=== PATIENT | female | born 1990 | race Caucasian/White ===

== ENCOUNTER 2017-01-01 12:33 | Emergency (ER) | payer BC ==
[2017-01-01 12:39] VITALS: TEMP 98.6
[2017-01-01] MEDS ORDERED: LORazepam 1 MG TAB PO ONE (12:56)
--- NOTE | 2017-01-01 13:00 | EDPHY ---
H & P Stated Complaint: TURNED HEAD THIS AM HEARD A POP/ L LATERAL NECK SPASMS Time Seen by Provider: 01/01/17 12:51 HPI/ROS: CHIEF COMPLAINT: Left neck pain HISTORY OF PRESENT ILLNESS: The patient is a 26-year-old female who comes to the emergency department complaining of left-sided neck pain over her trapezius muscle. She states that she was stretching this morning with her arms above her head when she turns her head to the right foot and felt a sudden pop in her left neck and has had pain ever since. She has significant pain with movement of her neck. She has not had any numbness weakness or paralysis. She initially states that she felt some numbness in her left arm but that resolved after second or 2. She has normal strength. She has no history of neck or back problems. She took Tylenol with only moderate improvement. This began around 8 :00 a.m.. REVIEW OF SYSTEMS: Constitutional: denies: chills, fever, recent illness, recent injury EENTM: denies: blurred vision, double vision, nose congestion Respiratory: denies: cough, shortness of breath Cardiac: denies: chest pain, irregular heart rate, lightheadedness, palpitations Gastrointestinal/Abdominal: denies: abdominal pain, diarrhea, nausea, vomiting, blood streaked stools Genitourinary: denies: dysuria, frequency, hematuria, pain Musculoskeletal: See HPI Skin: denies: lesions, rash, jaundice, bruising Neurological: denies: headache, numbness, paresthesia, tingling, dizziness, weakness Hematologic/Lymphatic: denies: blood clots, easy bleeding, easy bruising Immunologic/allergic: denies: HIV/AIDS, transplant EXAM: GENERAL: Well-appearing, well-nourished and in no acute distress. HEAD: Atraumatic, normocephalic. EYES: Pupils equal round and reactive to light, extraocular movements intact, sclera anicteric, conjunctiva are normal. ENT: TMs normal, nares patent, oropharynx clear without exudates. Moist mucous membranes. NECK: Normal range of motion, supple without lymphadenopathy or JVD. LUNGS: Breath sounds clear to auscultation bilaterally and equal. No wheezes rales or rhonchi. HEART: Regular rate and rhythm without murmurs, rubs or gallops. ABDOMEN: Soft, nontender, normoactive bowel sounds. No guarding, no rebound. No masses appreciated. BACK: No CVA tenderness, no spinal tenderness, step-offs or deformities EXTREMITIES: Normal range of motion, no pitting or edema. No clubbing or cyanosis. NEUROLOGICAL: Cranial nerves II through XII grossly intact. Normal speech, normal gait. 5/5 strength, normal movement in all extremities, normal sensation PSYCH: Normal mood, normal affect. SKIN: Warm, dry, normal turgor, no visible rashes or lesions. Source: Patient Exam Limitations: No limitations - Personal History LMP (Females 10-55): 15-21 Days Ago Current Tetanus/Diphtheria Vaccine: Unsure - Medical/Surgical History Hx Asthma: No Hx Chronic Respiratory Disease: No Hx Diabetes: No Hx Cardiac Disease: No Hx Renal Disease: No Hx Cirrhosis: No Hx Alcoholism: No Hx HIV/AIDS: No Hx Splenectomy or Spleen Trauma: No Other PMH: DENIES - Family History Significant Family History: No pertinent family hx - Social History Smoking Status: Never smoked Alcohol Use: Sober Drug Use: None Constitutional: Initial Vital Signs Temperature (C) 37 C 01/01/17 12:37 Heart Rate 77 01/01/17 12:37 Respiratory Rate 16 01/01/17 12:37 Blood Pressure 144/73 H 01/01/17 12:37 O2 Sat (%) 98 01/01/17 12:37 O2 Delivery Mode Room Air O2 (L/minute) 2 Allergies/Adverse Reactions: No Known Allergies Allergy (Unverified 01/01/17 12:36) Home Medications: Medication Instructions Recorded Diazepam [Valium 5 MG (*)] 5 mg PO TID PRN #15 tab 01/01/17 Medical Decision Making - Diagnostics Imaging Results: Imaging Impressions Cervical Spine X-Ray 01/01/17 12:57 Impression: 1. No acute osseous abnormality seen about the cervical spine. 2. Mild reversal of the normal lordosis of the mid cervical spine. This is nonspecific but can be seen with muscle spasm. ED Course/Re-evaluation: 1:45 p.m. the patient continues to have left-sided neck pain. I completed a trigger point injection of 5 cc of 0.5% bupivacaine into the right trapezius muscle. 2:30 p.m. the patient is not feeling any better after Ativan and trigger point injection. We will place an IV and start Toradol and Valium and Decadron. 4:00 p.m. the patient began to much better 5:45 p.m. the patient is feeling completely better. She is eager to go home. She is requesting a prescription for Valium. I also encouraged ibuprofen. Differential Diagnosis: Partial list of the Differential diagnosis considered include but were not limited to; muscle strain, radiculopathy and although unlikely based on the history and physical exam, I also considered fracture, infection. I discussed these differential diagnoses and the plan with the patient as well as the usual and expected course. The patient understands that the diagnosis is provisional and that in medicine we are not always correct and that further workup is often warranted. Usual and customary warnings were given. All of the patient's questions were answered. The patient was instructed to return to the emergency department should the symptoms at all worsen or return, otherwise to followup with the physician as we discussed. - Data Points Medications Given: Discontinued Medications Dexamethasone (Decadron Injection) 10 mg IVP EDNOW ONE Stop: 01/01/17 14:49 Last Admin: 01/01/17 14:57 Dose: 10 mg Diazepam (Valium Injection) 2.5 mg IVP EDNOW ONE Stop: 01/01/17 14:48 Last Admin: 01/01/17 14:57 Dose: 2.5 mg Ketorolac Tromethamine (Toradol) 30 mg IVP EDNOW ONE Stop: 01/01/17 14:48 Last Admin: 01/01/17 14:56 Dose: 30 mg Lorazepam (Ativan) 1 mg PO EDNOW ONE Stop: 01/01/17 12:57 Last Admin: 01/01/17 12:59 Dose: 1 mg Departure - Departure Disposition: Home, Routine, Self-Care Clinical Impression: Neck muscle strain Qualifiers: Encounter type: initial encounter Qualified Code(s): S16.1XXA - Strain of muscle, fascia and tendon at neck level, initial encounter Condition: Fair Instructions: Acute Neck Pain (ED) Referrals: NONE *PRIMARY CARE P,. [Primary Care Provider] - As per Instructions Prescriptions: Diazepam [Valium 5 MG (*)] 5 mg PO TID PRN #15 tab PRN Reason: Spasms
[2017-01-01] MEDS ORDERED: DIAZEPAM 10 MG/2 ML SYR IVP ONE (14:47)
[2017-01-01] MEDS ORDERED: KETOROLAC 30 MG/1 ML SDV IVP ONE (14:47)
[2017-01-01] MEDS ORDERED: DEXAMETHASONE 10 MG/ML VIAL IVP ONE (14:48)
[2017-01-01 15:55] VITALS: O2SAT 99
[2017-01-01 18:02] VITALS: BP 126/86; PULSE 69; RESP 16
== END 2017-01-01 18:00 | disposition home or self-care (01) ==
PROC: 3E023GC Introduction of Other Therapeutic Substance into Muscle, Percutaneous Approach (ICD-10-PCS; principal; 2017-01-01)
DX: S16.1XXA Strain of muscle, fascia and tendon at neck level, initial encounter (principal); X58.XXXA Exposure to other specified factors, initial encounter
CPT/HCPCS: 96374; J1100; J1885